=== PATIENT | female | born 1945 | race Caucasian/White ===

== ENCOUNTER → 2018-05-20 | Outpatient (CLI) | payer OTHER | END | disposition home or self-care (01) | LOC: EKG 08:08 | DX: I51.7 Cardiomegaly (principal); I05.1 Rheumatic mitral insufficiency; I07.1 Rheumatic tricuspid insufficiency; I27.20 Pulmonary hypertension, unspecified; I06.0 Rheumatic aortic stenosis; I06.1 Rheumatic aortic insufficiency; I25.10 Atherosclerotic heart disease of native coronary artery without angina pectoris; R06.02 Shortness of breath | CPT/HCPCS: 93306 ==